=== PATIENT | male | born 1970 | race Caucasian/White ===

== ENCOUNTER 2020-12-27 17:21 | Emergency (ER) | payer MEDICARE, MEDICAID ==
[~2020-12-27] VITALS: Ht 175.3 cm; Wt 125.0 kg
[~2020-12-27 17:21] MED LIST: ASPI-1071 PO; LISI-642 PO; METF-900 PO
[2020-12-27] MEDS ORDERED: acetaminophen 325mg tablet PO ONE (18:50)
[2020-12-27] MEDS ORDERED: CASIRIVIMAB/IMDEVIMAB inject. 10 ML in normal saline 100ml IV soln 100 ML IV ONE (20:00)
[2020-12-28 01:01] VITALS: BP 149/92
== END 2020-12-27 23:00 | disposition home or self-care (01) ==
LOC: ER 17:22
DX: U07.1 COVID-19 (principal); R05 Cough; I10 Essential (primary) hypertension; E11.9 Type 2 diabetes mellitus without complications; F12.90 Cannabis use, unspecified, uncomplicated; Z86.19 Personal history of other infectious and parasitic diseases; Z79.82 Long term (current) use of aspirin; Z79.899 Other long term (current) drug therapy
CPT/HCPCS: 71045; 99283; M0243; Q0244

== ENCOUNTER 2020-12-28 23:06 | Emergency (ER) | payer MEDICARE, MEDICAID ==
[~2020-12-28] VITALS: Ht 175.3 cm; Wt 125.0 kg
[2020-12-28 23:20] VITALS: BP 164/89
== END 2020-12-29 01:02 | disposition home or self-care (01) ==
LOC: ER 23:07
DX: U07.1 COVID-19 (principal); I10 Essential (primary) hypertension; E11.9 Type 2 diabetes mellitus without complications; F12.90 Cannabis use, unspecified, uncomplicated; Z79.82 Long term (current) use of aspirin; Z79.899 Other long term (current) drug therapy; Z91.030 Bee allergy status
CPT/HCPCS: 99281